=== PATIENT | male | born 1955 | race Caucasian/White ===

== ENCOUNTER 2020-01-06 07:23 | Outpatient (CLI) | payer OTHER ==
--- NOTE | 2020-01-06 10:31 | CT ---
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 H90.A21 sensorineural hearing loss, unilateral, right ear, with restricted hearing on the contralater al side. COMPARISON: None. TECHNIQUE: Precontrast scan of brain IV injection iodinated contrast media: Administered. Postcontrast scan of brain. According to the development technologist, the patient experienced itching and hives after iodinated contrast injection. FINDINGS: There is a small to moderate size region of encephalomalacia and gliosis at the left posterior parame phil parietal lobe, including medial to the trigone of the left lateral ventricle. No abnormal enhanc ement is identified in this location or elsewhere intra-axially. Ventricles are normal in size and co nfiguration. No acute intra-axial hemorrhage. No evidence of subarachnoid hemorrhage, subdural hemato ma, or epidural hematoma. Opacification of some of the anterior ethmoid air cells bilaterally. Frontal and sphenoid sinuses, an d the bilateral tympanomastoid cavities, are grossly clear. No displaced acute calvarial fracture. No mass effect or midline shift. No extra-axial fluid collection. No evidence of dural venous sinus thr ombosis. IMPRESSION: 1. 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 2. No acute findings. 3. The patient experienced allergic reaction to the iodinated contrast agent. In the future, if the patient requires a CT with IV contrast, premedication is recommended (consult with radiologist, radio logy nurse, or Imaging Department, for medication regimen). PETER Paredes POS: CET
--- NOTE | 2020-01-06 10:37 | CT ---
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 H90.A21 sensorineural hearing loss, unilateral, right ear, with restricted hearing on the contralater al side. FINDINGS: No temporal bone fracture identified. Bilateral middle ear cavities, mastoid antra, and most of the m astoid air cells, are bilaterally clear. Thinning of bone over the right superior semicircular canal. Difficult to exclude dehiscence of right superior semicircular canal. No dehiscence of the contralat eral left superior semicircular canal. Otherwise normal morphology of bilateral IAC's, cochleae, vestibules, vestibular aqueducts, semicircu lar canals, facial nerve canals, ossicles, carotid canals, and jugular bulbs. No ossicular erosion or displacement. Scutum intact bilaterally. Thinning of bone, but no large defect of tegmen tympani. Ex ternal auditory canals are clear. IMPRESSION: Essentially negative. POS: CET
[2020-01-06] MEDS ORDERED: Iopamidol 370 76% 100 ML VIAL ONE (13:42)
[2020-01-06 14:07] VITALS: BP 125/80
== END 2020-01-06 07:24 | disposition home or self-care (01) ==
LOC: CT 07:23
PROVIDERS: ATTEND Otolaryngology Plastic Surgery within the Head & Neck
DX: H90.A32 Mixed conductive and sensorineural hearing loss, unilateral, left ear with restricted hearing on the contralateral side (principal); S09.90XA Unspecified injury of head, initial encounter
CPT/HCPCS: 70470; 70480; 82565; Q9967